=== PATIENT | female | born 1965 | race Asian ===

== ENCOUNTER 2019-02-25 17:31 | Emergency (ER) | payer OTHER ==
[2019-02-25] MEDS ORDERED: NITROGLYCERIN 2% PASTE TOP STA (17:56)
--- NOTE | 2019-02-25 18:01 | ED Physician Documentation ---
PD HPI CHEST PAIN - Stated complaint Stated Complaint: CHEST DISCOMFORT, ARM PAIN, - Chief complaint Chief Complaint: Cardiac - History obtained from History obtained from: Patient - History of Present Illness Timing - onset: Other (53-year-old woman with history of arrhythmia presents with a week's worth of intermittent chest discomfort radiating to the back and left arm. It usually happens at rest and may be lasts 5 to 20 minutes at a time. Never wakes her from sleep. She is short of breath with it and notes increased pain with deep breathing. She says that in the past she had a stress test about 3 years ago, she does not know the results but it was recommended that she have angiography which she refused based on potential side effects. 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 - Present Medications Home Medications: Ambulatory Orders Medication Instructions Recorded Confirmed Aspirin [Aspir 81] 81 mg PO DAILY 06/27/15 06/27/15 Ondansetron Odt [Zofran] 4 mg TL Q6H PRN #10 tablet 06/27/15 - Allergies Allergies/Adverse Reactions: Allergies Allergy/AdvReac Type Severity Reaction Status Date / Time No Known Drug Allergies Allergy Verified 02/25/19 17:42 - Social History Does the pt smoke?: No Smoking Status: Never smoker Does the pt drink ETOH?: No Does the pt have substance abuse?: No - Immunizations Immunizations are current?: No PD ED PE NORMAL - Vitals Vital signs reviewed: Yes - General General: Alert and oriented X 3, No acute distress - HEENT HEENT: PERRL, EOMI - Neck Neck: Supple, no meningeal sign, No bony TTP - Cardiac Cardiac: RRR (With frequent extrasystoles), No murmur - Respiratory Respiratory: No respiratory distress, Clear bilaterally - Abdomen Abdomen: Soft, Non tender - Back Back: No CVA TTP, No spinal TTP - Derm Derm: Normal color, Warm and dry - Extremities Extremities: No edema, No calf tenderness / cord - Neuro Neuro: Alert and oriented X 3, Normal speech Results - Vitals Vitals: Vital Signs - 24 hr 02/25/19 02/25/19 02/25/19 17:40 18:12 18:30 Temperature 36.7 C Heart Rate 68 57 L 53 L Respiratory 17 20 17 Rate Blood Pressure 201/83 H 155/77 H 149/90 H O2 Saturation 99 100 100 02/25/19 02/25/19 19:30 20:11 Temperature 36.6 C Heart Rate 60 56 L Respiratory 18 17 Rate Blood Pressure 134/68 H 115/80 O2 Saturation 100 100 Oxygen O2 Source Room air - EKG (time done) 1740 Rate: Rate (enter#) (60) Rhythm: NSR (With frequent PVCs) [place]: Normal Intervals: Normal [place] QRS: Normal Ischemia: Normal ST segments - Labs Labs: Laboratory Tests 02/25/19 02/25/19 02/25/19 17:48 17:48 17:48 WBC 6.4 RBC 4.70 Hgb 13.7 Hct 42.0 MCV 89.4 MCH 29.1 MCHC 32.6 RDW 12.1 Plt Count 259 MPV 9.2 Neut # (Auto) 3.6 Lymph # (Auto) 2.3 Hill # (Auto) 0.3 Eos # (Auto) 0.1 Baso # (Auto) 0.0 Absolute Nucleated RBC 0.00 Nucleated RBC % 0.0 PT 11.3 INR 1.0 Sodium 141 Potassium 3.3 L Chloride 101 Carbon Dioxide 26 Anion Gap 14.0 H BUN 12 Creatinine 0.7 Estimated GFR (MDRD) 88 L Glucose 122 H Calcium 9.4 Total Bilirubin 0.9 AST 23 ALT 17 Alkaline Phosphatase 78 Troponin I Troponin I High Sens Total Protein 7.7 Albumin 4.4 Globulin 3.3 Albumin/Globulin Ratio 1.3 Lipase 33 02/25/19 02/25/19 17:48 19:27 WBC RBC Hgb Hct MCV MCH MCHC RDW Plt Count MPV Neut # (Auto) Lymph # (Auto) Hill # (Auto) Eos # (Auto) Baso # (Auto) Absolute Nucleated RBC Nucleated RBC % PT INR Sodium Potassium Chloride Carbon Dioxide Anion Gap BUN Creatinine Estimated GFR (MDRD) Glucose Calcium Total Bilirubin AST ALT Alkaline Phosphatase Troponin I < 0.04 Troponin I High Sens 3.1 2.7 Total Protein Albumin Globulin Albumin/Globulin Ratio Lipase - Rads (name of study) 1v chest Radiology: EMP read contemporaneously (NAD) CTA chest Radiology: EMP read contemporaneously (NAD, no dissection) PD MEDICAL DECISION MAKING - ED course Complexity details: reviewed old records (CardiologyNote from Dr. Mccall dated 07/17 was reviewed, "she continues to be plagued with chest discomforts and palpitations, her monitor showed nearly 40% monomorphic PVC burden" She also had nonsustained VT at that time.It was documented that she had a structurally normal heart. The angiography was not for coronary anatomy but for management of mapping and ablation, not a concern for coronary disease.), reviewed results ED course: 53-year-old woman presents with intermittent chest pain for the last week. Its associated with PVCs but it sounds like that is a pre-existing diagnosis. It radiated to the back so a CT was done without pertinent positive findings. 2- high-sensitivity troponins in the department here make ACS very unlikely. Following up with her bonsai culturist was advised. Departure - Departure Disposition: 01 Home, Self Care Clinical Impression: Atypical chest pain, PVCs (premature ventricular contractions) Hypertension Qualifiers: Hypertension type: essential hypertension Qualified Code(s): I10 - Essential (primary) hypertension Condition: Good Record reviewed to determine appropriate education?: Yes Instructions: ED Chest Pain Atypical Unkn Cause Follow-Up: Memo Mccall MD [Physician No Access] - Comments: You should follow-up with both your primary care physician and your bonsai culturist, next available appointment. Return for new or worsening symptoms.
[2019-02-25 18:06] LABS: BASOPHILS % (AUTO) 0.6 %; EOSINOPHILS # (AUTO) 0.1 10^3/uL (0.0-0.7); EOSINOPHILS % (AUTO) 1.9 %; HGB - HEMOGLOBIN 13.7 g/dL (12.0-16.0); LYMPHOCYTES # (AUTO) 2.3 10^3/uL (1.5-3.5); LYMPHOCYTES % (AUTO) 35.8 %; MEAN CORPUSCULAR HEMOGLOBIN 29.1 pg (27.0-31.0); MEAN CORPUSCULAR HGB CONC 32.6 g/dL (32.0-36.0); MEAN CORPUSCULAR VOLUME 89.4 fL (81.0-99.0); MEAN PLATELET VOLUME 9.2 fL (7.9-10.8); MONOCYTES # (AUTO) 0.3 10^3/uL (0.0-1.0); MONOCYTES % (AUTO) 4.4 %; NEUTROPHILS # (AUTO) 3.6 10^3/uL (1.5-6.6); NEUTROPHILS % (AUTO) 57.1 %; PLT - PLATELET COUNT 259 10^3/uL (130-450); RED CELL DISTRIBUTION WIDTH 12.1 % (12.0-15.0); WHITE BLOOD COUNT 6.4 x10^3/uL (4.8-10.8)
--- NOTE | 2019-02-25 18:16 | XRAY Report ---
Reason: chest pain Procedure Date: 02/25/2019 Accession Number: [id number] / [id number] Procedure: XR - Chest 1 View X-Ray CPT Code: 44616 FULL RESULT: IMPRESSION: No acute disease. RADIA IMPRESSION: No acute disease. RADIA
[2019-02-25 18:18] LABS: PT - PROTHROMBIN TIME 11.3 secs (9.9-12.6)
[2019-02-25 18:28] LABS: ALBUMIN 4.4 g/dL (3.2-5.5); ALBUMIN/GLOBULIN RATIO 1.3 (1.0-2.2); BILIRUBIN,TOTAL 0.9 mg/dL (0.2-1.0); CALCIUM 9.4 mg/dL (8.5-10.3); CREATININE 0.7 mg/dL (0.4-1.0); TOTAL PROTEIN 7.7 g/dL (6.7-8.2)
[2019-02-25 18:32] LABS: TROPONIN I < 0.04 ng/mL (<0.49)
[2019-02-25] MEDS ORDERED: IOVERSOL 320 100 ML VIAL IVP ONE ×2 (19:02→20:13)
--- NOTE | 2019-02-25 19:49 | CT Report ---
Reason: AORTA PROTOCOL, CHest/back pain Procedure Date: 02/25/2019 Accession Number: [id number] / [id number] Procedure: CT - ANGIO CHEST W/WO CPT Code: FULL RESULT: EXAM: CT ANGIOGRAM CHEST EXAM DATE: 02/25/2019 07:16 PM. CLINICAL HISTORY: Chest and back pain COMPARISON: None. TECHNIQUE: Routine helical imaging was performed through the chest in the pulmonary arterial phase. IV Contrast: Without and with 90 cc Optiray 320 IV. Reconstructions: Coronal 3-D MIP reconstructions.Sagittal and coronal. In accordance with CT protocol optimization, one or more of the following dose reduction techniques were utilized for this exam: automated exposure control, adjustment of mA and/or KV based on patient size, or use of iterative reconstructive technique. FINDINGS: Pulmonary Arteries: Diagnostic quality: Adequate through the segmental arteries. Negative for acute pulmonary embolism. Main pulmonary artery is normal in size. Lungs/Pleura: No consolidation, nodules, or edema. No effusions or pneumothorax. Mediastinum: Heart size is normal. There is no pericardial effusion. No mediastinal or hilar lymphadenopathy. Thoracic Aorta: Negligible aortic calcified plaque. Thoracic aorta is normal in contour. No aneurysm or dissection. There are minimal left coronary artery calcifications. Upper Abdomen: Unremarkable. Other: Thoracic spine appears in normal alignment. No fracture or destructive bony abnormality. IMPRESSION: 1. Negative exam. No aneurysm or dissection. Negligible thoracic aortic plaque. 2. No pulmonary embolism. 3. Clear lungs. RADIA
[2019-02-25 20:11] VITALS: BP 115/80
== END 2019-02-25 20:26 | disposition home or self-care (01) ==
LOC: ED 17:31
DX: R07.89 Other chest pain (principal); I49.3 Ventricular premature depolarization; I10 Essential (primary) hypertension
CPT/HCPCS: 36415; 71045; 71275; 80053; 83690; 84484; 85025; 85610; 99284; A9270; Q9967; 93005

== ENCOUNTER 2021-02-14 13:51 | Outpatient (CLI) | payer OTHER ==
--- NOTE | 2021-02-15 13:45 | Mammography Report ---
BILATERAL DIGITAL SCREENING MAMMOGRAM 3D/2D: 02/14/2021 CLINICAL: Routine screening. Comparison is made to exams dated: 05/05/2015 mammogram, 03/04/2014 mammogram, 04/22/2012 mammogram, and 01/09/2011 mammogram - [facility]. The tissue of both breasts is heterogeneously dens e. This may lower the sensitivity of mammography. There is an asymmetry in the left breast posterior depth lateral region seen on the craniocaudal view only. This is more prominent. No other significant masses, calcifications, or other findings are seen in either breast. IMPRESSION: INCOMPLETE: NEEDS ADDITIONAL IMAGING EVALUATION The asymmetry in the left breast is indeterminate. Additional views with possible ultrasound are recommended. This exam was interpreted at Station ID: [id number]. NOTE: For mammograms, a report in lay terms will be sent to the patient. Approximately 15% of breast malignancies will not be visualized mammographically. In the management of a palpable breast mass, a negative mammogram must not discourage biopsy of a clinically suspicious lesion. Electronically Signed By: Emmanuel Rodriguez M.D. slc/:02/14/2021 16:55:26 ACR BI-RADS Category 0: Incomplete 3340F PARENCHYMAL PATTERN: (D) - The breast(s) demonstrate(s) heterogeneously dense fibroglandular alban stokes. BI-RADS CATEGORY: (0) - 0 Mammo and [place] [id number] Immediate follow-up LATERALITY: (B)
== END 2021-02-14 13:52 | disposition home or self-care (01) ==
LOC: DI 13:51
DX: Z12.31 Encounter for screening mammogram for malignant neoplasm of breast (principal); R92.8 Other abnormal and inconclusive findings on diagnostic imaging of breast

== ENCOUNTER 2022-01-09 07:41 | Day surgery (SDC) | payer OTHER ==
[2022-01-09 08:13] VITALS: BP 146/90
--- NOTE | 2022-01-09 08:48 | CONSULTATION NOTE ---
Consultation Report: Pt presented for pre-op admission for routine colonoscopy screening. Pt with multiple PVC's upon admit. Bigeminy, trigeminy, and couplet and triplet PVCs noted on bedside tele. BP stable in 130's but pt complains of repeated lumps in throat, which she is palpating herself. EKG ordered. One EKG shows SR with trigeminy, and additional capture shows coupled PVC's and bigeminy. Health history revealed patient being seen by cardiology 5-7 years ago for chest pain and ectopy. Pt states she was to have angiocatheterization/cardiology visit but opted not to show up for appointment/procedure r/t fear and knowledge deficit. She said she frequently experiences PVCs but not as bad as today. She also stated she had recent left sided arm and chest pain that resolved without intervention. While discussing possible causes (prep, HCTZ, possible cardiac disease) and continuing with health history patient states she would like to have the procedure done at another time. We have advised she follows up with her PCP. Case to be completed at later date pending results of follow up appointments. All questions were answered to patients satisfaction and conclusion of discussion.
== END 2022-01-09 07:42 | disposition home or self-care (01) ==
LOC: SDS 07:41
PROVIDERS: ATTEND Surgery
DX: Z12.11 Encounter for screening for malignant neoplasm of colon (principal); I49.3 Ventricular premature depolarization; R00.8 Other abnormalities of heart beat; Z53.09 Procedure and treatment not carried out because of other contraindication
CPT/HCPCS: 93005

== ENCOUNTER 2022-07-17 15:39 | Emergency (ER) | payer OTHER ==
[2022-07-17 16:03] VITALS: BP 124/64
--- NOTE | 2022-07-17 17:35 | ED Physician Documentation ---
History of Present Illness - Stated complaint Stated Complaint: RT EAR PX - Chief complaint Chief Complaint: Heent - History obtained from History obtained from: Patient - History of Present Illness Timing: How many weeks ago (several weeks) Pain level max: 2 Pain level now: 1 - Additonal information Additional information: Patient is a 57-year-old female who complains of right ear discomfort for several weeks. She states she has noticed a popping sound in the right ear and decreased hearing. No drainage. Nothing makes it better or worse. She has also had cough and congestion for the past several days.No fevers. No chills. No nausea or vomiting. No abdominal pain. No head injury. No trauma. 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 - Present Medications Home Medications: Ambulatory Orders Medication Instructions Recorded Confirmed Aspirin [Aspir 81] 81 mg PO DAILY 06/27/15 06/27/15 Ondansetron Odt [Zofran] 4 mg TL Q6H PRN #10 tablet 06/27/15 Triamterene/Hdyrochlor 37.5/25 1 cap PO DAILY 01/05/22 01/05/22 [Dyazide] Benzonatate [Tessalon] 200 mg PO TID PRN #30 cap 07/17/22 Cetirizine HCl/Pseudoephedrine 1 each PO BID PRN #30 tab 07/17/22 [Zyrtec-D Tablet] - Allergies Allergies/Adverse Reactions: Allergies Allergy/AdvReac Type Severity Reaction Status Date / Time No Known Drug Allergies Allergy Verified 07/17/22 16:03 - Social History Does the pt smoke?: No Smoking Status: Never smoker Does the pt drink ETOH?: No Does the pt have substance abuse?: No - Immunizations Immunizations are current?: No PD ED PE NORMAL - Vitals Vital signs reviewed: Yes - General General: Alert and oriented X 3, No acute distress - HEENT HEENT: Moist mucous membranes, Pharynx benign, Other (Left ear and tympanic membrane are normal. The right tympanic membrane appears to have a small perforation in the inferoposterior aspect. There is no bulging of the eardrum. There is no drainage.) - Neck Neck: Supple, no meningeal sign - Cardiac Cardiac: RRR - Respiratory Respiratory: No respiratory distress, Clear bilaterally - Derm Derm: Warm and dry - Neuro Neuro: Alert and oriented X 3 Results - Vitals Vitals: Vital Signs - 24 hr 07/17/22 16:01 Temperature 36.4 C L Heart Rate 54 L Respiratory 20 Rate Blood Pressure 124/64 O2 Saturation 96 Oxygen O2 Source Room air PD Medical Decision Making - ED course Complexity details: considered differential, d/w patient ED course: Patient with what appears to be a ruptured right TM. Likely occurred several weeks ago. Given precautions including keeping water out of the ear, utilizing cotton as needed. We will have her follow-up with her PCP for further care. Patient is well-appearing, nontoxic. Afebrile. No hypoxia. No respiratory distress. Will prescribe medication for her URI. Patient counseled regarding signs and symptoms for which I believe and urgent re-evaluation would be necessary. Patient with good understanding of and agreement to plan and is comfortable going home at this time This document was made in part using voice recognition software. While efforts are made to proofread this document, sound alike and grammatical errors may occur. Departure - Departure Disposition: 01 Home, Self Care Clinical Impression: Viral URI Tympanic membrane perforation Qualifiers: Laterality: right Qualified Code(s): H72.91 - Unspecified perforation of tympanic membrane, right ear Condition: Good Instructions: ED Rupture Eardrum Infec, ED Viral Syndrome Follow-Up: [facility] [Provider Group] Prescriptions: Benzonatate [Tessalon] 200 mg PO TID PRN #30 cap PRN Reason: Cough Cetirizine HCl/Pseudoephedrine [Zyrtec-D Tablet] 1 each PO BID PRN #30 tab PRN Reason: nasal congestion Comments: Please follow-up with your doctor for further care. You can put cotton in your ear when it is cold or windy outside. You should also not get water in your ear during showers, you can put cotton in at that time to. Please do not pack your ear tightly with cotton however. Please follow-up with the ENT for further evaluation. Your prescriptions were sent to [facility] in [place]. Discharge Date/Time: 07/17/22 17:43
== END 2022-07-17 17:43 | disposition home or self-care (01) ==
LOC: ED 15:39
DX: H72.91 Unspecified perforation of tympanic membrane, right ear (principal); J06.9 Acute upper respiratory infection, unspecified
CPT/HCPCS: 99282

== ENCOUNTER 2023-01-01 10:32 | Outpatient (CLI) | payer OTHER ==
[2023-01-01 17:59] LABS: BASOPHILS % (AUTO) 0.7 %; EOSINOPHILS # (AUTO) 0.1 10^3/uL (0.0-0.7); EOSINOPHILS % (AUTO) 1.9 %; HCT - HEMATOCRIT 41.3 % (37.0-47.0); HGB - HEMOGLOBIN 13.4 g/dL (12.0-16.0); LYMPHOCYTES # (AUTO) 1.7 10^3/uL (1.5-3.5); LYMPHOCYTES % (AUTO) 28.8 %; MEAN CORPUSCULAR HEMOGLOBIN 29.8 pg (27.0-31.0); MEAN CORPUSCULAR HGB CONC 32.4 g/dL (32.0-36.0); MEAN CORPUSCULAR VOLUME 91.8 fL (81.0-99.0); MEAN PLATELET VOLUME 9.4 fL (7.9-10.8); MONOCYTES # (AUTO) 0.3 10^3/uL (0.0-1.0); MONOCYTES % (AUTO) 4.4 %; NEUTROPHILS # (AUTO) 3.8 10^3/uL (1.5-6.6); NEUTROPHILS % (AUTO) 63.9 %; PLT - PLATELET COUNT 292 10^3/uL (130-450); RED CELL DISTRIBUTION WIDTH 12.1 % (12.0-15.0); WHITE BLOOD COUNT 5.9 x10^3/uL (4.8-10.8)
[2023-01-01 18:25] LABS: ALBUMIN 4.3 g/dL (3.2-5.5); ALBUMIN/GLOBULIN RATIO 1.3 (1.0-2.2); ALKALINE PHOSPHATASE 65 IU/L (42-121); ALT ALANINE AMINOTRANSFERASE 34 IU/L (10-60); AST ASPARTATE AMINOTRANSFERASE 28 IU/L (10-42); BILIRUBIN,TOTAL 0.8 mg/dL (0.2-1.0); BUN - BLOOD UREA NITROGEN 17 mg/dL (6-20); CARBON DIOXIDE - CO2 28 mmol/L (21-32); CHLORIDE 106 mmol/L (101-111); CHOL/HDL RATIO 2.3 (<4.4); CHOLESTEROL 260 mg/dL; CREATININE 0.8 mg/dL (0.4-1.0); GFR - MDRD 74 (>89); GLUCOSE 99 mg/dL (70-100); HDL CHOLESTEROL 113 mg/dL; LDL CHOLESTEROL,CALCULATED 139 mg/dL; LDL/HDL RATIO 1.2 (<4.4); POTASSIUM 4.5 mmol/L (3.5-5.0); SODIUM 140 mmol/L (135-145); TOTAL PROTEIN 7.5 g/dL (6.7-8.2); TRIGLYCERIDES 42 mg/dL; VLDL CHOLESTEROL 8 mg/dL
== END 2023-01-01 10:33 | disposition home or self-care (01) ==
LOC: LAB.N 10:32
PROVIDERS: ATTEND Physician Assistant
DX: I25.10 Atherosclerotic heart disease of native coronary artery without angina pectoris (principal)
CPT/HCPCS: 36415; 80053; 80061; 83721; 84443; 85025

== ENCOUNTER 2023-02-01 08:02 | Outpatient (CLI) | payer OTHER ==
--- NOTE | 2023-02-01 12:09 | Mammography Report ---
BILATERAL DIGITAL DIAGNOSTIC MAMMOGRAM 3D/2D: 02/01/2023 CLINICAL: Palpable right breast lump. Due for bilateral. Comparison is made to exams dated: 04/05/2021 mammogram - [facility], 02/14/2021 mammogram - [facility], 05/05/2015 mammogram, and 03/04/2014 mammogram - [facility]. Both breasts are heterogeneously dense, which may obscure small masses (category c / 51-75% glandular tissue). No significant masses, calcifications, or other findings are seen in either breast. IMPRESSION: INCOMPLETE: NEEDS ADDITIONAL IMAGING EVALUATION There is no abnormality seen in the right breast to correspond with the area of clinical concern, how ever, ultrasound is recommended. Based on the Tyrer Cuzick model (a risk assessment model) the patients lifetime risk is 8.6% and her 10 year risk is 2.8%. According to the ACR, ACS, and NCCN guidelines, an annual breast MRI exam evelyn g with mammogram is recommended if the patients lifetime risk is 20% or greater. This exam was interpreted at Station ID: [id number]. NOTE: For mammograms, a report in lay terms will be sent to the patient. Approximately 15% of breast malignancies will not be visualized mammographically. In the management of a palpable breast mass, a negative mammogram must not discourage biopsy of a clinically suspicious lesion. Electronically Signed By: Jordan Toure M.D. lc/:02/01/2023 08:59:02 ACR BI-RADS Category 0: Incomplete 3340F PARENCHYMAL PATTERN: (D) - The breast(s) demonstrate(s) heterogeneously dense fibroglandular alban stokes. BI-RADS CATEGORY: (0) - 0 Ultrasound [id number] Immediate follow-up LATERALITY: (B)
--- NOTE | 2023-02-01 12:09 | Ultrasound Report ---
LIMITED ULTRASOUND OF RIGHT BREAST: 02/01/2023 CLINICAL: Palpable right breast lump. Comparison is made to exams dated: 02/01/2023 mammogram - [facility], 04/05/2021 mammo gram - [facility], and 02/14/2021 mammogram - [facility]. Color flow ultrasound of the right breast 3 o'clock region was performed. Marie scale images of the r eal-time examination were reviewed. There is a 1 cm x 1.2 cm x 0.8 cm oval hyperechoic mass with a circumscribed margin in the right yanira st at 3 o'clock in the retroareolar region 3 cm from the nipple. This correlates as palpated but was not seen on the prior mammogram. IMPRESSION: PROBABLY BENIGN The 1 cm x 1.2 cm x 0.8 cm oval hyperechoic mass in the right breast is probably benign. A follow-up ultrasound in 6 months is recommended. A follow-up ultrasound in 6 months is recommended to demonstrate stability. This exam was interpreted at Station ID: [id number]. Electronically Signed By: Jordan Toure M.D. lc/:02/01/2023 09:01:10 Ultrasound BI-RADS: 3 Probably benign BI-RADS CATEGORY: (3) - 3 Ultrasound [id number] 6 month follow-up LATERALITY: (B)
== END 2023-02-01 08:03 | disposition home or self-care (01) ==
LOC: DI 08:02
PROVIDERS: ATTEND Physician Assistant
DX: N63.15 Unspecified lump in the right breast, overlapping quadrants (principal)

== ENCOUNTER 2023-08-23 12:41 | Outpatient (CLI) | payer OTHER ==
--- NOTE | 2023-08-24 11:54 | Ultrasound Report ---
LIMITED ULTRASOUND OF RIGHT BREAST: 08/23/2023 CLINICAL: Palpable right breast lump. Comparison is made to exams dated: 02/01/2023 ultrasound, [facility] 04[facility]05/[facility] mammogram - [facility], 02/14/2021 mammogram - [facility], and 05/05/2015 mammogram - [facility]. Color flow and real-time ultrasound of the right breast 3 o'clock region were performed. Marie scale images of the real-time examination were reviewed. There is a 1.1 cm x 1 cm x 0.6 cm oval mass with a circumscribed margin in the right breast at 3 o'cl ock in the retroareolar region 3 cm from the nipple. This abnormality is less prominent and correlat es as palpated but was not seen on the prior mammogram. IMPRESSION: PROBABLY BENIGN The 1.1 cm x 1 cm x 0.6 cm oval mass in the right breast is probably benign. A follow-up ultrasound in 6 months is recommended. This is less prominent and appears to be part of a fat lobule. This exam was interpreted at Station ID: [id number]. Electronically Signed By: Jordan Toure M.D. lc/:08/23/2023 13:16:06 Ultrasound BI-RADS: 3 Probably benign BI-RADS CATEGORY: (3) - 3 Ultrasound [id number] 6 month follow-up LATERALITY: (B)
== END 2023-08-23 12:42 | disposition home or self-care (01) ==
LOC: DI 12:41
PROVIDERS: ATTEND Physician Assistant
DX: N63.15 Unspecified lump in the right breast, overlapping quadrants (principal)

== ENCOUNTER 2024-03-17 10:35 | Outpatient (CLI) | payer OTHER ==
[2024-03-17 14:08] LABS: ALBUMIN 4.4 g/dL (3.2-5.5); ALBUMIN/GLOBULIN RATIO 1.4 (1.0-2.2); ALKALINE PHOSPHATASE 86 IU/L (42-121); ALT ALANINE AMINOTRANSFERASE 21 IU/L (10-60); AST ASPARTATE AMINOTRANSFERASE 23 IU/L (10-42); BILIRUBIN,TOTAL 1.4 mg/dL (0.2-1.0); BUN - BLOOD UREA NITROGEN 14 mg/dL (6-20); CALCIUM 9.7 mg/dL (8.5-10.3); CARBON DIOXIDE - CO2 30 mmol/L (21-32); CHLORIDE 104 mmol/L (101-111); CHOL/HDL RATIO 2.3 (<4.4); CHOLESTEROL 189 mg/dL; CREATININE 0.9 mg/dL (0.6-1.3); GFR - MDRD 65 (>89); GLUCOSE 105 mg/dL (74-104); HDL CHOLESTEROL 84 mg/dL; LDL CHOLESTEROL,CALCULATED 90 mg/dL; LDL/HDL RATIO 1.1 (<4.4); POTASSIUM 4.3 mmol/L (3.5-4.5); SODIUM 140 mmol/L (135-145); TOTAL PROTEIN 7.5 g/dL (6.4-8.9); TRIGLYCERIDES 73 mg/dL; VLDL CHOLESTEROL 15 mg/dL
== END 2024-03-17 10:36 | disposition home or self-care (01) ==
LOC: LAB.N 10:35
DX: I10 Essential (primary) hypertension (principal)
CPT/HCPCS: 36415; 80053; 80061; 83721